=== PATIENT | female | born 1970 | race Caucasian/White ===

== ENCOUNTER 2024-10-06 06:27 | Emergency (ER) | payer BC, SELFPAY ==
[2024-10-06 06:33] VITALS: BP 99/58; PULSE 67; RESP 16; TEMP 36.4; O2SAT 98; BMI 33.9
--- NOTE | 2024-10-06 06:46 | PC.NURSE ---
wire charger made aware of bp. pt awaiting to get labs drawn and bed availability at this time, in WR with .
--- NOTE | 2024-10-06 07:06 | ED.GENADULT ---
HPI - General Adult General Chief complaint: Skin/Abscess/Foreign Body Stated complaint: right waist abscess, infection? Time Seen by Provider: 10/06/24 07:06 Source: patient and family ( at bedside corroborating history) Mode of arrival: ambulatory Limitations: no limitations History of Present Illness ED Provider: Justa Lockett PA-C HPI narrative: 53-year-old female with history of STANLEY presents to the ED due to dog bite that occurred 2 weeks ago. Patient states she got a new puppy who is up-to-date on all vaccines who nipped her on the right side of her lower abdomen 2 weeks ago. Patient states she cleaned the area with iodine and was placing bacitracin bandage over the area and felt like the wound was healing. Patient states she noticed 2 days ago there is some redness, warmth, swelling and pus-like drainage from the bite. Patient states she woke up this morning feeling nauseous, with fever and chills. She has not taken any medication for management of pain or fever. Patient states she thinks she is up-to-date on tetanus, but can not remember. Denies chest pain, shortness of breath, vomiting, diarrhea, dark/tarry stool MD complaint: dog bite Related Data Previous Rx's ?Medication ?Instructions ?Recorded amoxicillin 875 mg-potassium 1 tab PO BID 7 days #14 tabs 10/06/24 clavulanate 125 mg tablet doxycycline hyclate 100 mg tablet 100 mg PO BID 7 days #14 tabs 10/06/24 Allergies Allergy/AdvReac Type Severity Reaction Status Date / Time fluticasone Allergy Unknown Palpitation Verified 10/06/24 06:38 s ibuprofen Allergy Unknown Anaphylaxis Verified 10/06/24 06:38 naproxen (Aleve) Allergy Unknown Anaphylaxis Verified 10/06/24 06:38 gluten Allergy Unknown Stomach Uncoded 10/06/24 06:38 Upset latex Allergy Unknown Hives Uncoded 10/06/24 06:38 Review of Systems Review of Systems: CONST: Negative for fever, body aches and chills. HENT: Negative for neck pain/stiffness, headache, congestion, sore throat, swelling. EYES: Negative for discharge/pain or vision changes. RESP: Negative for cough/hemoptysis and shortness of breath. CV: Negative chest pain, difficulty breathing, palpitations. ABD: Negative pain, nausea, vomiting. : Negative increase frequency, dysuria, blood in urine or stool. MUSC: Negative for muscle aches, edema. SKIN: Negative rash, lesions/sores. NEURO: Negative headache, dizziness, weakness. FORMERLY [facility], [facility] Past Medical History Attestation statement: The following information was validated with the patient. Source: old records reviewed and nursing notes reviewed Social History Social History Advance Directives: No Advance Directives Information Provided: Yes Do you have a plan to hurt others: No Plan Physical Exam ED Vital Signs: Vital Signs - 24 hr 10/06/24 06:33 Temperature 97.5 F Pulse Rate 67 Respiratory Rate 16 Blood Pressure 99/58 L Pulse Oximetry 98 Oxygen Delivery Method Room Air BMI result Body Mass Index 33.9 GENERAL APPEARANCE: ?AxOx4, generally well-appearing, no acute distress. HEENT: ?NC, AT. MMM. EOMI, clear conjunctiva, oropharynx clear. NECK: ?Supple without lymphadenopathy.? No stiffness or restricted ROM. HEART:? Normal rate and regular rhythm, normal S1/S2, no m/r/g LUNGS:? CTAB, moving air well. No crackles or wheezes are heard. ABDOMEN: ?Soft, nontender, nondistended with good bowel sounds heard. Small healing puncture wound of lower R abdomen, no active drainage, well demarcated line of erythema around wound, mild warmth. See photos BACK: No CVAT, no obvious deformity. EXTREMITIES: ?Without cyanosis, clubbing or edema. NEUROLOGICAL: ?Grossly nonfocal. Alert and oriented, moving all 4 extremities. Observed to ambulate with normal gait. Skin: ?Warm and dry without any rash. Medical Decision Making Medical Decision Making MDM Narrative: 53-year-old female without significant medical history presents to the ED due to dog bite that occurred 2 weeks ago. Patient states she got a new puppy who is up-to-date on all vaccines who nipped her on the right side of her lower abdomen 2 weeks ago. Patient states she cleaned the area with iodine and was placing bacitracin bandage over the area and felt like the wound was healing. Patient states she noticed 2 days ago there is some redness, warmth, swelling and pus-like drainage from the bite. Patient states she woke up this morning feeling nauseous, with fever and chills. She has not taken any medication for management of pain or fever. Patient states she thinks she is up-to-date on tetanus, but can not remember. VS on initial observation- BP 99/58, pulse rate of 67, respiratory rate of 16, afebrile with oral temp of 97.5?, O2 saturation 98% on room air. On physical exam there is a small bite wound of the lower right abdomen, without active drainage, with a well-demarcated line of erythema, mild warmth (see photo in the physical exam portion of this note) Labs without leukocytosis, H and H stable, no evidence of electrolyte abnormality, transaminitis with AST of 117, ALT of 316 however patient with history of STANLEY. Patient well-appearing, nontoxic appearing. Able to be discharge for home self-care. Patient states her puppy is up-to-date on vaccinations, can not remember if she has had tetanus vaccination within the last 5 years, will administer Tdap for coverage today. No active drainage or fluctuance to wound- less likely abscess There is a clear line of demarcation indicative of erysipelas, will prescribe 7 days of augmentin and doxycycline for treatment. Differential Diagnosis Differential Diagnoses: The differential diagnosis associated with the presentation includes Dog bite Cellulitis Erysipelas Abscess Admission/Observation Consideration of admission/observation: Escalation of care including admission/observation considered Lab Data MDM Lab Attestation statement: I reviewed the patient's lab results. 10/06/24 08:16 10/06/24 08:16 Labs: Lab Results 10/06/24 Range/Units 08:16 WBC 6.7 (4.8-10.8) X10*3/uL RBC 4.33 (4.20-5.50) X10*6/uL Hgb 13.2 (12.0-16.0) g/dl Hct 38.5 (37.0-47.0) % MCV 88.9 (80.0-98.0) fL MCH 30.5 (27.0-33.0) pg MCHC 34.3 (31.0-35.0) g/dl RDW 12.8 (11.0-16.0) % Plt Count 170 (160-400) X10*3/uL MPV 8.7 L (9.4-12.3) fL Immature Gran % (Auto) 0.3 (0.0-0.4) % Neut % (Auto) 64.6 (45-73) % Lymph % (Auto) 23.3 (20-40) % [place] % (Auto) 7.1 (2-11) % Eos % (Auto) 4.2 H (0-4) % Baso % (Auto) 0.5 (0-2) % Lymph # (Auto) 1.6 (1.2-4.9) X10*3/uL [place] # (Auto) 0.5 (0.1-1.2) X10*3/uL Eos # (Auto) 0.3 (0.0-0.4) X10*3/uL Baso # (Auto) 0.0 (0.0-0.2) X10*3/uL Abs Immat Gran (auto) 0.02 (0.00-0.03) X10*3/uL Absolute Neuts (auto) 4.3 (2.0-8.3) x10*3/uL Absolute Nucleated RBC 0.000 (0.0-0.012) X10*3/uL Nucleated RBC % (auto) 0.0 (0.0-0.2) /100WBC Sodium 141 (135-145) mmol/L Potassium 4.4 (3.3-5.1) mmol/L Chloride 107 (96-108) mmol/L Carbon Dioxide 27 (22-29) mmol/L Anion Gap 11 L (12-20) BUN 14 (9-16) mg/dL Creatinine 0.67 (0.5-1.4) mg/dL Estim Creat Clear Calc 94.9 Estimated GFR > 60 Random Glucose 102 (60-115) mg/dL Calcium 9.0 (8.4-10.2) mg/dL Magnesium 2.2 (1.6-2.6) mg/dL Total Bilirubin 0.4 (0.0-1.0) mg/dL AST 117 H (5-31) U/L ALT 316 H (0-31) U/L Alkaline Phosphatase 71 (39-117) U/L Total Protein 7.7 (6.5-8.0) g/dL Albumin 4.1 (3.5-5.0) g/dL External Record Review External record reviewed: Inpatient record, Office record and Outpatient record Discharge Plan Discharge Clinical Impression: Erysipelas, Dog bite of abdomen Patient Disposition: Home, Self-Care Instructions: Animal Bite (ED) Additional Instructions: You were evaluated in the emergency department today after dog bite of your lower right abdomen. Your physical exam was reassuring that there was no abscess as there was no active drainage or soft spongy fluctuance of the area. You will be prescribed a 7 day course of Augmentin and doxycycline which are antibiotics for bacterial coverage. You were given tetanus shot today while in the department. Please follow up with your primary care provider to ensure improvement. Please return to the emergency department if you experience fevers over 100.4?, that are not controlled with Tylenol or Motrin, worsening pain of the bite site, redness that is expanding, pus-like drainage, or any new/worsening/concerning symptoms. Prescriptions: New amoxicillin-pot clavulanate 875-125 mg tablet 1 tab PO BID 7 Days Qty: 14 0RF doxycycline hyclate 100 mg tablet 100 mg PO BID 7 Days Qty: 14 0RF Print Language: Bulgarian
--- OUTSIDE RECORDS SUMMARY | 2024-10-06 08:00 | XMS_ITS | Encounter Summary ---
Author Organization [facility] Address [facility] [employer] [address] [address] Phone Care Team Providers Care Vault Custodian Name Role Phone Jamison Keenan MD Primary Care Provider [phone]- [phone] Jamison Keenan MD Unavailable [phone] Darrell Patricia CNP Unavailable [phone] Encounter Details Date Type Department Care Team (Late st Contact Info) Description 07/09/2024 Procedure Pass [facility] Endoscopy Admitting Dept Virtual Department [address] [place] [address] Social History Tobacco Use Types Packs/Day Years Used Date Smoking Tobacco: Never Smokeless Tobacco: Never Alcohol Use Standard Drinks/Week Comments Not Currently 0 (1 standard drink = 0.6 oz pur e alcohol) Child or Family Care Answer Date Record ed Do you have problems with on e of the following making it difficult for you to work, study, or receive health care? No 07/07/2022 Education Answer Date Recorded Are you interested in more education? Not on sami e 07/08/2024 Are you concerned about learning? Not on file 07/08/2024 No 07/08/2024 No 07/08/2024 Food Answer Date Recorded Within the past 6 months we worried whether our food would run out before we got money to buy more. Never True 07/07/2022 Within the past 6 months the food we bought just didn't last and we didn't have enough money to get more. Never True Residential Stability Answer Date Recor ded What is your housing situation today? I have corrie adkins 07/07/2022 How many times have you move d in the past 12 months? Zero (I did not move) 07/07/2022 Paying for Meds Answer Date Recorded Do you have trouble paying for medicines? No 07/07/2022 Paying Utility Bills Answer Date Record ed Do you have trouble paying your heating or elect ricity bill? No 07/07/2022 Transportation Answer Date Recorded Has the lack of transportati on kept you from medical appointments or from getting medications? No 07/07/2022 Unemployment Answer Date Recorded Are you currently unemployed or working on a part-time or temporary basis, and looking for work? No 05/27/2021 Digital Access Answer Date Recorded No 07/08/2024 No 07/08/2024 Reliable internet access at home? Not on file 07/08/2024 Device with a working camera? Not on file Intimate Partner Violence Answer Date R ecorded Are you denied basic needs s uch as food, clothing, or medical care? No 07/04/2024 In the past 12 months have y ou been in a relationship with a person who hurts, threatens, or tries to control you? No 07/04/2024 Are you denied basic needs s uch as food, clothing, or medical care? No 07/04/2024 In the past 12 months have y ou been in a relationship with a person who hurts, threatens, or tries to control you? No 07/04/2024 Comments Unknown Sex and Gender Information Value Date Recorded Sex Assigned at Not on file Legal Sex Female 9:32 PM EDT Gender Identity Not on file Sexual Orientation Not on file documented as of this encounter Plan of Treatment Upcoming Encounters Date Type Department Care Team (Late st Contact Info) Description 10/17/2024 3:30 PM EDT Office Visit [facility] [address] [place] [address] Jamison Keenan MD [address] [facility] [place] [address] documented as of this encounter Visit Diagnoses Not on filedocumented in this encounter Additional Health Concerns Assessment Noted Time PHQ-2 Depression Total Score: 1 07/08/19 23 4:01 PM EDT documented as of this encounter Care Teams Vault Custodian Relationship Specialty Start Date End Date Jamison Keenan MD [address] [facility] [place] [address] [email or web address] PCP - General 12/07/16 Jamison Keenan MD [address] [facility] [place] [address] Historical LMR Provider 12/07/16 Darrell Patricia CNP [address] [place] [address], [address] [place] [address] [email or web address] Historical LMR Provider 12/07/16 documented as of this encounter Additional Source Comments The information contained in this document represents components of the legal health record. It is not the complete legal health record.[facility]
--- OUTSIDE RECORDS SUMMARY | 2024-10-06 08:00 | XMS_ITS | Patient Health Record ---
[facility] mark anthony [place] Address [address] [place] [place] [address] Care Team Providers Care Outpatient Program Coordinator Name Role Phone Gerardo ZHOU, Lory Primary Care Provider Kelly Fuentes Unavailable [phone] Allergies Allergen (clinical drug ingredient) Drug/Non Drug Allergy documented on EMR Reaction Allergy Type Onset Date Status Latex Unknown Drug Allergy Active Gluten Gluten Unknown Allergy Active Reason For Referral No Information Medications Medication SIG (Take, Route, Frequency, Duration) Notes Start Date End Date Status Flovent HFA Not-Taki ng ASO Ankle/Foot Stablizing AFO As directed Wear Daily; Duration: as needed 11/27/2018 Active Advil 200 MG Orally PRN Not-Ta daysi Nightsplint . . . AFO - L1930; Duration: . Active Omeprazole 10 MG Orally Once a day Not-Taking Immunizations Vaccine Route Administration Date Status Comme nts Influenza Unknown 11/19/2018 Administered Social History Tobacco Use: Social History Observation Description Date Details (start date - stop date) Never Smoker NA - NA Tobacco Use/Smoking Question Answer Notes Are you a: nonsmoker Additional Findings: Tobacco Non-User Current no n-smoker Tobacco use other than smoking: Question Answer Notes Are you an other tobacco user? No Problems No Known Problems Plan Of Treatment Pending Test Test Name Order Date Hemoglobin A1c 07/30/2019 X ray : Foot, right 3V 04/09/2018 X ray : Foot, right 3V 11/06/2017 [id number] TENDON SHEATH/LIGAMENT 0 04/09/2018 Insurance Providers Payer Name Payer Address Payer Phone Subscriber Number Group Number Insured Name Patient Relationship to Insured Coverage Start Date Coverage End Date [facility] [address] [place] [address] [id number] Simran Simon Self - patient is the insured Medical (General) History Medical History History ICD Code Arthritis asthma Chicken pox 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
[2024-10-06 08:19] LABS: MANUAL DIFF FLAG NO
[2024-10-06 08:21] LABS: Hematocrit 38.5 % (37.0-47.0); Hemoglobin 13.2 g/dl (12.0-16.0); Imm Gran Abs Auto 0.02 X10*3/uL (0.00-0.03); Imm Gran Pct Auto 0.3 % (0.0-0.4); Lymphocytes Absolute Auto 1.6 X10*3/uL (1.2-4.9); Mean Corpuscular HGB Conc 34.3 g/dl (31.0-35.0); Mean Corpuscular Hemoglobin 30.5 pg (27.0-33.0); Mean Corpuscular Volume 88.9 fL (80.0-98.0); NRBC Abs Auto 0.000 X10*3/uL (0.0-0.012); NRBC Pct Auto 0.0 /100WBC (0.0-0.2); Platelet Count 170 X10*3/uL (160-400); Red Blood Count 4.33 X10*6/uL (4.20-5.50); White Blood Count 6.7 X10*3/uL (4.8-10.8)
[2024-10-06 08:45] LABS: Alanine Aminotransferase 316 U/L (0-31); Albumin Level 4.1 g/dL (3.5-5.0); Alkaline Phosphatase 71 U/L (39-117); Anion Gap 11 (12-20); Aspartate Amino Transferase 117 U/L (5-31); Blood Urea Nitrogen 14 mg/dL (9-16); Calcium 9.0 mg/dL (8.4-10.2); Carbon Dioxide 27 mmol/L (22-29); Chloride 107 mmol/L (96-108); Creatinine Clr Calc Pharmacy 94.9; Estimated Glomerular Filt Rate > 60; Magnesium 2.2 mg/dL (1.6-2.6); Potassium 4.4 mmol/L (3.3-5.1); Sodium 141 mmol/L (135-145); Total Protein 7.7 g/dL (6.5-8.0)
[2024-10-06] MEDS: Diphth,Pertus(ACell),Tet Adult 0.5 ML SYRINGE IM (09:21)
[2024-10-06 09:28] VITALS: BP 99/58; PULSE 67; RESP 16; TEMP 36.4; O2SAT 98
== END 2024-10-06 09:29 | disposition home or self-care (01) ==
PROVIDERS: Emergency Provider Emergency Medicine; PCP Family Medicine
DX: S31.159A Open bite of abdominal wall, unspecified quadrant without penetration into peritoneal cavity, initial encounter (principal); W54.0XXA Bitten by dog, initial encounter; Y93.9 Activity, unspecified; Y92.9 Unspecified place or not applicable; Y99.9 Unspecified external cause status; A46 Erysipelas; Z23 Encounter for immunization
CPT/HCPCS: 36415; 80053; 83735; 85025; 90471; 90715; 99282; 99284